=== PATIENT | male | born 1975 | race Caucasian/White ===

== ENCOUNTER 2016-11-17 19:22 | Emergency (ER) | payer OTHER ==
[~2016-11-17] VITALS: Ht 172.7 cm; Wt 87.4 kg
[~2016-11-17 19:22] MED LIST: AMOXICILLIN500 MG PO; ATORVASTATIN CA20 MG PO; CYMBALTA20 MG PO; HYDROCO/APAP1 TA9 PO; LISINOP/HCTZ1 TA1 PO; LORTAB 10-325 M1 TAB PO; METOPROLOL SUC100 MG PO; MOBIC15 MG PO; NAPROSYN500 MG PO; NORCO1 TA2 PO; PRILOSEC40 MG PO; ROBITUSSIN AC10 ML PO; TRAMADOL HCL50 MG PO; ZANAFLEX4 M2 PO; allo PO
[2016-11-17] MEDS ORDERED: PERCOCET 10/31 COMBO PO (19:31)
[2016-11-17] MEDS ORDERED: PERCOCET 5/325M1 TAB PO (20:50)
[2016-11-17] MEDS ORDERED: ORPHENADRINE100 MG PO (20:50)
[2016-11-17 21:00] VITALS: BP 122/80
== END 2016-11-17 21:00 | disposition home or self-care (01) | DRG 93 ==
LOC: ED 19:22
DX: G89.29 Other chronic pain (principal); I10 Essential (primary) hypertension; M50.30 Other cervical disc degeneration, unspecified cervical region; K21.9 Gastro-esophageal reflux disease without esophagitis

== ENCOUNTER 2017-03-06 18:29 | Emergency (ER) | payer SELFPAY ==
[~2017-03-06] VITALS: Ht 172.7 cm; Wt 100.0 kg
[~2017-03-06 18:29] MED LIST changes: +ORPHENADRINE100 MG PO; +PERCOCET 10/31 COMBO PO; +PERCOCET 5/325M1 TAB PO
[2017-03-06] MEDS ORDERED: PERCOCET 5/325M1 TAB PO (19:02)
[2017-03-06] MEDS ORDERED: KEFLEX500 MG PO (19:02)
[2017-03-06 19:53] VITALS: BP 152/89
== END 2017-03-06 19:54 | disposition home or self-care (01) | DRG 394 ==
LOC: ED 18:29
DX: K61.1 Rectal abscess (principal); K62.5 Hemorrhage of anus and rectum

== ENCOUNTER 2017-07-30 16:29 | Emergency (ER) | payer SELFPAY ==
[~2017-07-30] VITALS: Ht 172.7 cm; Wt 90.0 kg
[~2017-07-30 16:29] MED LIST changes: +KEFLEX500 MG PO
[2017-07-30 16:39] VITALS: BP 137/88
[2017-07-30] MEDS ORDERED: TORADOL PO (17:04)
[2017-07-30] MEDS ORDERED: PARAFON FORT PO (17:04)
== END 2017-07-30 17:15 | disposition home or self-care (01) | DRG 93 ==
LOC: ED 16:29
DX: G89.29 Other chronic pain (principal); M54.2 Cervicalgia

== ENCOUNTER 2017-08-15 11:42 | Emergency (ER) | payer SELFPAY ==
[~2017-08-15] VITALS: Ht 172.7 cm; Wt 90.9 kg
[~2017-08-15 11:42] MED LIST changes: +PARAFON FORT PO; +TORADOL PO
[2017-08-15] MEDS ORDERED: METOPROL TAR25 MG PO (11:57)
[2017-08-15] MEDS ORDERED: HYDROCHLOROT25 MG PO (11:58)
[2017-08-15] MEDS ORDERED: LISINOPRIL20 MG PO (11:58)
[2017-08-15] MEDS ORDERED: NORVASC5 M1 PO (12:00)
[2017-08-15] MEDS ORDERED: ATORVASTATIN CA20 MG PO (12:01)
[2017-08-15] MEDS ORDERED: AUGMENTIN875TAB PO (12:18)
[2017-08-15 12:25] VITALS: BP 124/96
== END 2017-08-15 12:25 | disposition home or self-care (01) | DRG 603 ==
LOC: ED 11:42
DX: L05.01 Pilonidal cyst with abscess (principal); I10 Essential (primary) hypertension

== ENCOUNTER → 2018-05-19 | Outpatient (REF) | payer BC ==
[~2018-05-19] MED LIST changes: +AUGMENTIN875TAB PO; +HYDROCHLOROT25 MG PO; +HYDROCODONE BIT1 TA8 PO; +HYDROCODONE/ACE1 TAB PO; +LISINOPRIL20 MG PO; +METOPROL TAR25 MG PO; +NORVASC5 M1 PO
[2018-05-19 08:34] VITALS: BP 153/107
== END | disposition home or self-care (01) | DRG 951 ==
LOC: PAIN/MGT 08:19
PROVIDERS: ATTEND Anesthesiology Pain Medicine
DX: Z09 Encounter for follow-up examination after completed treatment for conditions other than malignant neoplasm (principal)